=== PATIENT | male | born 1950 | race Caucasian/White ===

== ENCOUNTER 2017-08-09 11:20 | Inpatient (IN) | payer OTHER ==
[2017-08-09] VITALS (15 sets, daily range): BP systolic 85–100; BP diastolic 50–72
[~2017-08-09] VITALS: Ht 175.3 cm; Wt 91.2 kg
--- NOTE | ~2017-08-09 | EKG ---
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
--- NOTE | ~2017-08-09 | EKG ---
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
--- NOTE | ~2017-08-09 | EKG ---
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: [id number] : 1950 Requested By: Primo Noe Order Number: [id number] MD: Chinmay Betancourt Measurements Intervals [place] Rate: 67 P: 0 SD: 80 QRS: -80 QRSD: 215 T: 102 QT: 541 QTc: 572 Interpretive Statements A-V dual-paced complexes w/ some inhibition No further analysis attempted due to paced rhythm Compared to ECG 09/17/2015 23:35:49 Sinus rhythm no longer present Supraventricular rhythm no longer present Left bundle-branch block no longer present Electronically Signed On 08-10-2017 13:21:39 CDT by Chinmay Betancourt [email or web address] <ELECTRONICALLY SIGNED> By: Chinmay Betancourt MD 08/10/17 1321 1127 1127 Chinmay Betancourt MD /EPI
--- NOTE | ~2017-08-09 | HC ---
[facility] [address] [place] [address] CONSULTATION Name: TEESOL D Room #: 214-P ADM IN ..#: [id number] Admission: 08/09/17 Attend Phys: Bessie Angeles Discharge: Date of : 48 Report #: [id number] THIS REPORT FOR: //name// CC: Jaycob Mccormick DATE OF SERVICE: 08/12/2017 NEPHROLOGY CONSULTATION ATTENDING PHYSICIAN: Dr. Angeles REASON FOR CONSULTATION: Elevated creatinine. HISTORY OF PRESENT ILLNESS: The patient with known CKD followed by Dr. Luis Somers in [place], [place] with a baseline creatinine I believe of about 2 currently. Has had longstanding CKD. A previous renal sonogram, which showed thinning of the cortices and was admitted at this time with recurrent V-tach and a defibrillator discharge and now his creatinine has elevated from 2.1 to 2.9. He has chronic hypotension and actually runs systolic blood pressure in the 80s even as an outpatient at times. PAST MEDICAL HISTORY: He has ischemic cardiomyopathy, 9 years ago had 6-vessel coronary bypass surgery, has not had any stents placed. Has ischemic cardiomyopathy with decreased ejection fraction and an ICD. He has AV dual pacer as well as the defibrillator in place. HOME MEDICATIONS: Include warfarin 4 mg daily, lisinopril 2.5 mg daily, furosemide 20 mg daily, aspirin 81 mg daily, simvastatin 20 mg daily, carvedilol 6.25 mg b.i.d., potassium 10 mEq daily, dipyridamole 75 mg b.i.d., hydrocodone, fish oil, Prilosec 20 mg daily, spironolactone 25 mg daily. Has been on amiodarone drip since admission here. FAMILY HISTORY: Father had diabetes, hypertension and renal disease. Did not require dialysis. SOCIAL HISTORY: No cigarettes or alcohol. REVIEW OF SYSTEMS: GENERAL: He is currently feeling reasonably well. EYES: Vision is okay. ENT: Hearing okay. Swallows okay. No mouth ulcers. ENDOCRINE: Has not had any diabetes. RESPIRATORY: Denies current shortness of breath. Does have some exertional dyspnea. No pleuritic pain or cough. No hemoptysis. [facility] [address] [place] [address] CONSULTATION Name: SOL OLIVEIRA Room #: 214-P [facility] IN ..#: [id number] Admission: 08/09/17 Attend Phys: Bessie Angeles Discharge: Date of : 48 Report #: [id number] CARDIAC: He is not having any current angina. Does get swelling in his legs. GASTROINTESTINAL: Appetite is fair. No nausea, vomiting, diarrhea or bloody stools. GENITOURINARY: Good stream without dysuria or hematuria. No renal stones. NEUROLOGIC: Denies seizure, syncope or stroke. PHYSICAL EXAMINATION: GENERAL: This is a reasonably stable appearing gentleman. SKIN: He has got the clear-cut trauma where he fell and hit his head. SKELETAL: Well developed and well nourished. HEENT: He has got laceration across his forehead and ecchymosis below his eyes. Vision and hearing intact. Mucous membranes moist. NECK: Supple. No carotid bruits, lymphadenopathy. CHEST: Clear to auscultation. HEART: Regular but distant. ABDOMEN: Soft and nontender. EXTREMITIES: Show 1+ peripheral edema. NEUROLOGIC: Grossly intact. LABORATORY DATA: Creatinine up from 2.1 to 2.9. No urine studies. Hemoglobin is 12.8. ASSESSMENT AND PLAN: 1. Xlxze-tt-hdroquk kidney disease. Creatinine is up. I believe he got over diuresed. There may have been some minor injury, probably acute with the episodes of V-tach and VFib, which were documented. In any event, I expect him to stabilize and improve. For completeness, renal sonogram, urinalysis, urine protein studies and serum protein studies all sent. Currently, lisinopril, spironolactone and Lasix are on hold. 2. Severe ischemic cardiomyopathy, status post coronary bypass. 3. Recurrent V-tach and VFib, now on amiodarone. <ELECTRONICALLY SIGNED> By: Jaycob Sharp MD 08/15/17 1045 1304 1539 Jaycob Sharp MD /nt
--- NOTE | ~2017-08-09 | 2DMMODE ---
[facility] [place] [place] [address] 2 D/M-MODE ECHOCARDIOGRAM Name: SOL OLIVEIRA Room #: 243-P [facility] IN ..#: [id number] Admission: 08/09/17 Attend Phys: Bessie Hallman Discharge: Date of : 48 Date of Service: 08/09/17 1517 Report #: [id number] THIS REPORT FOR: //name// APPROVED REPORT Study performed: 08/09/2017 13:56:17 EXAM: Comprehensive 2D, Doppler, and color-flow Echocardiogram Patient Location: ER Room #: 8 Status: routine BSA: 2.07 HR: 53 bpm BP: 104/59 mmHg Rhythm: Paced Other Information Study Quality: Adequate Indications Syncope, ischemic cardiomyopathy. Hx: CABG, ICD, Afib 2D Dimensions RVDd: 55.88 mm LVEF(%): 24.29 (>50%) IVSd: 8.94 (7-11mm) LVOT Diam: 20.67 (18-24mm) LVDd: 58.60 mm PWd: 9.15 (7-11mm) Ascending Ao: 32.01 (22-36mm) LVDs: 51.93 (25-40mm) Aortic Root: 30.33 mm Dickerson's LVEF: 24.29 % Volumes Left Atrial Volume (Systole) Single Plane 4CH: 77.33 mL Single Plane 2CH: 69.82 mL LA ESV Index: 38.00 mL/m2 Aortic Valve AoV Peak William.: 1.16 m/s AO Peak Gr.: 5.41 mmHg LVOT Max P.38 mmHg LVOT Max V: 0.77 m/s EBONIE Vmax: 2.23 cm2 Mitral Valve MV Decel. Time: 199.16 ms MV E Max William.: 1.36 m/s [facility] [place] [place] [address] 2 D/M-MODE ECHOCARDIOGRAM Name: SOL OLIVEIRA Room #: 243-P [facility] IN [facility].#: [id number] Admission: 08/09/17 Attend Phys: Bessie Hallman Discharge: Date of : 48 Date of Service: 08/09/17 1517 Report #: [id number] Pulmonary Valve PV Peak William.: 0.60 m/s PV Peak Gr.: 1.43 mmHg Tricuspid Valve TR Peak William.: 2.79 m/s RAP Estimate: 15.00 mmHg TR Peak Gr.: 31.16 mmHg Left Ventricle Left ventricle is dilated. There is normal left ventricular wall thickness. Left ventricular systolic function is severely decreased. LVEF is 20-25%. This study is not technically sufficient to allow evaluation of the LV diastolic function. Right Ventricle Right ventricle is dilated. The right ventricular systolic function is normal. Device lead is present in the right ventricle. Atria Left atrium is mildly dilated. Right atrium is severely dilated. Aortic Valve The Aortic valve is sclerotic. Mild aortic regurgitation. There is no aortic valvular stenosis. Mitral Valve Mitral valve leaflets are thickened. Mild mitral annular calcification. Moderate mitral regurgitation. Tricuspid Valve The tricuspid valve is normal in structure. Severe tricuspid regurgitation. Estimated PAP is 46mmHg. Pulmonic Valve The pulmonary valve is normal in structure. Mild to moderate pulmonic regurgitation. Great Vessels The aortic root is normal in size. The ascending aorta is normal in size. IVC is dilated and collapses <50% with inspiration. Pericardium There is no pericardial effusion. [facility] [address] [address] 2 D/M-MODE ECHOCARDIOGRAM Name: SOL OLIVEIRA Room #: 243-P [facility] IN ..#: [id number] Admission: 08/09/17 Attend Phys: Bessie Hallman Discharge: Date of : 48 Date of Service: 08/09/17 1517 Report #: [id number] <Conclusion> Left ventricle is dilated. Left ventricular systolic function is severely decreased. LVEF is 20-25%. Right ventricle is dilated. Device lead is present in the right ventricle. The Aortic valve is sclerotic. Mild aortic regurgitation. Mitral valve leaflets are thickened. Mild mitral annular calcification. Moderate mitral regurgitation. The tricuspid valve is normal in structure. Severe tricuspid regurgitation. Estimated PAP is 46mmHg. The pulmonary valve is normal in structure. Mild to moderate pulmonic regurgitation. <ELECTRONICALLY SIGNED> By: Jonathan Laura MD 08/09/171516 16 16 Jonathan Laura MD /INF
[~2017-08-09 11:20] MED LIST: ACETAMINOPHEN325 M1 PO; AGGRENOX CAPSU1 EACH PO; ALDACTONE25 MG PO; ASPIR 8181 MG PO; ASPIRIN325 PO; CARVEDILOL3.125 MG PO; COREG6.25 MG PO; COUMADIN 4 MG TA4 M1 PO; COUMADIN6 MG PO; DIPYRIDAMOLE PO; FISH OIL 1,0001 EAC7 PO; FUROSEMIDE 40 M40 M1 PO; FUROSEMIDE 40 M40 MG PO; HYDROCODON-ACE1 EAC7 PO; LASIX 20 MG TAB20 MG PO; LEVAQUIN 500 M500 M1 PO; LISINOPRIL10 MG PO; LISINOPRIL2.5 MG PO; POTASSIUM CHLO20 ME1 PO; PRILOSEC 20 MG20 MG PO; SIMVASTATIN40 MG PO; TRAMADOL 50 MG50 MG PO; ZOCOR20 MG PO
[2017-08-09 11:59] LABS: ABSOLUTE NEUTROPHILS 6.3 thou/uL (1.4-8.2); EOSINOPHILS 2.8 % (0.0-3.0); HEMATOCRIT 36.1 % (42.0-52.0); HEMOGLOBIN 12.4 gm/dL (14.0-18.0); MCH 31.8 pg (26.0-34.0); MCHC 34.5 g/dL (28.0-37.0); MCV 92.3 fL (80.0-100.0); MONOCYTES 10.1 % (1.0-8.0); PLATELET COUNT 144 thou/uL (150-400); POLYS 76.1 % (36.0-66.0); RBC 3.91 mil/uL (4.50-6.00); RDW 14.3 % (10.5-14.5); WBC 8.3 thou/uL (4.0-11.0)
[2017-08-09 12:01] LABS: MANUAL DIFF NO
[2017-08-09 12:07] LABS: CALCIUM 9.3 mg/dL (8.5-10.1); CREATININE 2.1 mg/dL (0.7-1.3); POTASSIUM 4.8 mmol/L (3.5-5.1)
[2017-08-09 12:12] LABS: APTT 33.9 Seconds (24.5-32.8); INR 2.2; PROTIME 21.8 Seconds (9.3-11.4)
[2017-08-09 12:18] LABS: ALBUMIN 3.3 g/dL (3.4-5.0); TOTAL BILIRUBIN 0.9 mg/dL (<0.1-1.0); TOTAL PROTEIN 6.9 g/dL (6.4-8.2); TROPONIN-I 0.09 ng/mL (<0.04-0.07)
[2017-08-10] VITALS (23 sets, daily range): BP systolic 89–103; BP diastolic 59–74
[2017-08-10 03:30] LABS: HEMATOCRIT 35.3 % (42.0-52.0); HEMOGLOBIN 11.9 gm/dL (14.0-18.0); MCH 31.1 pg (26.0-34.0); MCHC 33.6 g/dL (28.0-37.0); MCV 92.3 fL (80.0-100.0); PLATELET COUNT 122 thou/uL (150-400); RBC 3.82 mil/uL (4.50-6.00); RDW 14.2 % (10.5-14.5); WBC 6.2 thou/uL (4.0-11.0)
[2017-08-10 03:35] LABS: MANUAL DIFF YES
[2017-08-10 03:44] LABS: PROTIME 19.9 Seconds (9.3-11.4)
[2017-08-10 03:57] LABS: MAGNESIUM 2.1 mg/dL (1.8-2.4); TROPONIN-I 0.13 ng/mL (<0.04-0.07)
[2017-08-10 05:01] LABS: ABSOLUTE NEUTROPHILS 4.1 thou/uL (1.4-8.2); ANISOCYTOSIS SLIGHT; MACROCYTES SLIGHT; TOTAL CELL COUNT 100
[2017-08-11] VITALS (14 sets, daily range): BP systolic 90–105; BP diastolic 55–70
[2017-08-11 10:41] LABS: HEMATOCRIT 37.7 % (42.0-52.0); HEMOGLOBIN 12.8 gm/dL (14.0-18.0); MCH 31.3 pg (26.0-34.0); MCHC 33.9 g/dL (28.0-37.0); MCV 92.2 fL (80.0-100.0); RBC 4.08 mil/uL (4.50-6.00); RDW 14.1 % (10.5-14.5); WBC 7.9 thou/uL (4.0-11.0)
[2017-08-11 10:55] LABS: INR 1.7; PROTIME 17.7 Seconds (9.3-11.4)
[2017-08-11 10:59] LABS: CALCIUM 9.6 mg/dL (8.5-10.1); CREATININE 2.9 mg/dL (0.7-1.3); POTASSIUM 4.8 mmol/L (3.5-5.1)
[2017-08-12 04:08] VITALS: BP 99/54
[2017-08-12 08:08] VITALS: BP 89/53
[2017-08-12 12:15] VITALS: BP 98/57
[2017-08-12 15:46] VITALS: BP 94/62
[2017-08-12 18:17] LABS: URINE BILIRUBIN NEGATIVE (Negative); URINE BLOOD NEGATIVE (Negative); URINE COLOR YELLOW; URINE GLUCOSE-RANDOM* NEGATIVE (Negative); URINE KETONES NEGATIVE (Negative); URINE NITRITE NEGATIVE (Negative); URINE PROTEIN (DIPSTICK) NEGATIVE (Negative)
[2017-08-12 18:33] LABS: PROT/CREAT RATIO 0.1; URINE CREATININE-RANDOM* 77.6 mg/dL; URINE PROTEIN-RANDOM* 6.3 mg/dL (<11.9)
[2017-08-12 19:07] VITALS: BP 112/58
[2017-08-12 23:40] VITALS: BP 100/54
[2017-08-13 04:01] LABS: ALBUMIN 3.4 g/dL (3.4-5.0); CALCIUM 9.7 mg/dL (8.5-10.1); CREATININE 2.8 mg/dL (0.7-1.3); PHOSPHORUS 3.8 mg/dL (2.5-4.9)
[2017-08-13 04:21] VITALS: BP 96/57
[2017-08-13 07:24] VITALS: BP 105/69
[2017-08-13 11:58] VITALS: BP 103/64
[2017-08-13 12:48] LABS: INR 1.6; PROTIME 16.4 Seconds (9.3-11.4)
[2017-08-13 16:11] VITALS: BP 106/60
[2017-08-13 20:07] VITALS: BP 111/89
[2017-08-14 04:03] LABS: INR 1.5; PROTIME 15.4 Seconds (9.3-11.4)
[2017-08-14 04:05] LABS: ALBUMIN 3.2 g/dL (3.4-5.0); CALCIUM 9.3 mg/dL (8.5-10.1); CREATININE 2.3 mg/dL (0.7-1.3); PHOSPHORUS 3.8 mg/dL (2.5-4.9); POTASSIUM 4.1 mmol/L (3.5-5.1)
[2017-08-14 04:42] VITALS: BP 110/69
[2017-08-14 08:00] VITALS: BP 109/63
[2017-08-14 12:00] VITALS: BP 95/60
[2017-08-14 15:36] VITALS: BP 98/75
[2017-08-14 20:08] VITALS: BP 96/64
[2017-08-15 03:28] LABS: HEMATOCRIT 33.8 % (42.0-52.0); HEMOGLOBIN 11.5 gm/dL (14.0-18.0); MCH 31.6 pg (26.0-34.0); PLATELET COUNT 124 thou/uL (150-400); RBC 3.64 mil/uL (4.50-6.00); RDW 14.5 % (10.5-14.5); WBC 6.7 thou/uL (4.0-11.0)
[2017-08-15 03:30] LABS: MANUAL DIFF YES
[2017-08-15 03:39] LABS: CALCIUM 9.1 mg/dL (8.5-10.1); CREATININE 2.1 mg/dL (0.7-1.3); PHOSPHORUS 3.5 mg/dL (2.5-4.9); POTASSIUM 4.5 mmol/L (3.5-5.1)
[2017-08-15 03:43] VITALS: BP 105/62
[2017-08-15 07:15] VITALS: BP 106/64
[2017-08-15 09:45] LABS: ABSOLUTE NEUTROPHILS 4.5 thou/uL (1.4-8.2); NUCLEATED RBCS 1 /100WBC; PLATELET ESTIMATE NORMAL; TOTAL CELL COUNT 100
[2017-08-15 11:59] VITALS: BP 106/65
[2017-08-15] MEDS ORDERED: PACERONE 200 M200 M1 PO (12:23)
[2017-08-15] MEDS ORDERED: ATORVASTATIN CA40 MG PO (12:24)
[2017-08-15] MEDS ORDERED: LASIX 40 MG TAB40 M1 PO (12:31)
[2017-08-15 13:10] VITALS: BP 106/65
[2017-08-15 16:12] LABS: A/G RATIO 1.3 (0.7-1.7); ALBUMIN 3.6 g/dL (2.9-4.4); ALPHA 1 0.2 g/dL (0.0-0.4); ALPHA 2 0.6 g/dL (0.4-1.0); BETA 0.9 g/dL (0.7-1.3); GAMMA 1.1 g/dL (0.4-1.8); M-SPIKE Not Observed g/dL (Not Observed)
== END 2017-08-15 14:15 | disposition home or self-care (01) | DRG 308 ==
LOC: ER 11:20 → ICU 13:30 → EROBS 13:33 → ICU 13:33 → 2N 08-11 17:25 → ENTRNSPT 08-15 13:56 → EDTRNSPTSTS 08-15 14:01 → 2N 08-15 14:15
PROVIDERS: Emergency Medicine; Hospitalist; Internal Medicine Cardiovascular Disease; Internal Medicine Nephrology; Nurse Practitioner Gerontology
DX: I44.2 Atrioventricular block, complete (principal); N17.0 Acute kidney failure with tubular necrosis; E46 Unspecified protein-calorie malnutrition; R57.9 Shock, unspecified; I47.2 Ventricular tachycardia; I45.9 Conduction disorder, unspecified; I48.0 Paroxysmal atrial fibrillation; E78.00 Pure hypercholesterolemia, unspecified; E11.22 Type 2 diabetes mellitus with diabetic chronic kidney disease; E78.5 Hyperlipidemia, unspecified; E11.51 Type 2 diabetes mellitus with diabetic peripheral angiopathy without gangrene; I49.01 Ventricular fibrillation; S09.90XA Unspecified injury of head, initial encounter; S00.83XA Contusion of other part of head, initial encounter; N18.9 Chronic kidney disease, unspecified; I25.5 Ischemic cardiomyopathy; I25.10 Atherosclerotic heart disease of native coronary artery without angina pectoris; Z79.01 Long term (current) use of anticoagulants; Z95.1 Presence of aortocoronary bypass graft; Z86.73 Personal history of transient ischemic attack (TIA), and cerebral infarction without residual deficits; Z79.82 Long term (current) use of aspirin; Z79.899 Other long term (current) drug therapy; I25.2 Old myocardial infarction; Z82.49 Family history of ischemic heart disease and other diseases of the circulatory system; Z84.1 Family history of disorders of kidney and ureter; Z83.3 Family history of diabetes mellitus; Z68.29 Body mass index [BMI] 29.0-29.9, adult; X58.XXXA Exposure to other specified factors, initial encounter; Y93.89 Activity, other specified; Y92.89 Other specified places as the place of occurrence of the external cause; Y99.8 Other external cause status
CPT/HCPCS: 10078; 10081